=== PATIENT | female | born 1970 | race Caucasian/White ===

== ENCOUNTER 2022-03-05 08:42 | Emergency (ER) | payer BC, OTHER ==
[2022-03-05] MEDS ORDERED: Adenosine 6 MG/2 ML SDV ONE (09:02)
[2022-03-05] MEDS ORDERED: Adenosine 12 MG/4 ML SDV ONE ×2 (09:02→09:03)
[2022-03-05] MEDS ORDERED: Adenosine 6 MG/2 ML SDV IVPUSH ONE (09:06)
[2022-03-05] MEDS ORDERED: Dextrose 5%-0.9% NaCl 1,000 ML IV SCH (09:15)
[2022-03-05 10:04] LABS: ESTIMATED GFR 104 mL/min (>60)
== END 2022-03-05 11:20 | disposition home or self-care (01) ==
LOC: JD.ED 08:42
DX: I47.1 Supraventricular tachycardia (principal); I49.9 Cardiac arrhythmia, unspecified; E66.9 Obesity, unspecified; Z68.30 Body mass index [BMI] 30.0-30.9, adult
CPT/HCPCS: 36415; 71045; 80053; 83735; 83880; 84443; 85025; 85610; 85730; 86140; 93005; 96361; 96374; 99285; J0153; J7042